=== PATIENT | female | born 1955 | race Caucasian/White ===

== ENCOUNTER 2025-02-22 18:12 | Inpatient (IN) | payer OTHER ==
[~2025-02-22] VITALS: Ht 157.5 cm; Wt 84.5 kg
[~2025-02-22 18:12] MED LIST: AMIO200T33 PO; AMLO1TAB22 PO; ASPI325T25 PO; CLOP75TA28 PO; FENO5TAB PO; FURO1TAB31 PO; HYDR-2035 PO; LEVO50TA7 PO; METO25TA36 PO; NITR0.4D5 TD; ZOLP5TAB5 PO
--- NOTE | 2025-02-22 19:05 | ED.PDOC ---
GI ASSESSMENT HPI Comments HPI: Poor Historian. 70-year-old female presents to emergency department for evaluation of two day history of epigastric pain nonradiating constant with the associated nausea but no vomiting or diarrhea or fever. Once the patient arrived to the ED she was found to be slightly hypoxic 92% on room air. She was given supplemental oxygen. She said as soon as she started using the oxygen her epigastric symptoms have completely resolved. She also states she started taking Voltaren yesterday for arthritis which may contribute to her abdominal pain. Denies bleeding from anywhere. Past Medical History: Arthritis, hypertension, thyroid disease, sudden cardiac Past Surgical History: REVIEW OF SYSTEMS: CONSTITUTIONAL: Denies acute: fever, diaphoresis, chills, HEAD: Denies acute: headache, photophobia Eyes: Denies acute: Double vision, vision loss, eye pain, eye discharge. EARS: Denies acute: tinnitus, hearing loss, ear discharge, ear pain, THROAT: Denies acute: sore throat, swelling, difficulty swallowing , pain with swallowing, change in voice. NECK: Denies acute: neck pain, neck swelling, stiff neck. HEART: Denies acute : chest pain, palpitations, LUNGS: Denies acute: SOB, wheezing, cough, hemoptysis ABDOMEN: Denies acute: Vomiting, diarrhea, melena , hematemesis, hematochezia SKIN: Denies acute: rash, redness, lesions, itchiness. EXTREMITIES: Denies acute: calf pain, numbness, tingling, weakness, denies pain in extremity. Denies acute: Low back pain. Neuro: Denies acute: focal neurological deficit, motor or sensory focal neurological deficit, tremors, seizure like activity, confusion, dizziness, change in mental status, loss of bowel or bladder function, cauda equina like symptoms. : Denies acute: dysuria, hematuria, flank pain, increase in urinary frequency. PSYCH: Denies acute: hallucination, suicidal ideation, homicidal ideation. FEMALE: Denies acute: abnormal vaginal bleeding, foul odor, unusual discharge. PHYSICAL EXAM: General: -----mild---acute distress, awake and alert. Head: normocephalic, atraumatic. Neck: supple, trachea is midline, no swelling. Throat: Normal phonation. Eyes:, no erythema, no purulent discharge, no proptosis, no icterus. Heart: regular rate, regular rhythm, no significant murmur appreciated. Lungs: no apparent respiratory distress, Able to speak in full sentences. No wheezing, no rhonchi, no crackles. No stridors Clear to auscultation bilaterally. Abdomen: non tender to palpation, non distended, soft, no guarding, no rebound, + bowel sounds. Neuro: Awake, Alert, oriented to name, self, situation, follows commands GCS=15. Speech is normal. Skin: no petechia, no purpura, no cyanosis, non-pale, not jaundice. Lower extremities: --no - Pitting edema no deformity, no focal swelling, no calf TTP. Makes eye contact. moves all four extremities. Face: no apparent facial droop. Ambulating in the ED independently. ED COURSE: DISCLAIMER: This medical document was created using an electronic medical record system with voice recognition software and computerized dictation system. Although this document has been carefully reviewed, there might still be some phonetic and typographical errors. Occasional wrong-word or "sound-alike" substitutions may have occurred due to the inherent limitations of voice recognition software. These areas are purely typographical due to imperfections of the software programs and do not reflect any compromise in the patient's medical care. Please read the chart carefully and recognize, using context, where these substitutions have occurred. Chief Complaint: Abdominal Pain Time Seen by MD: 18:18 Primary Care Provider: BRITTANI Reviewed Notes: Nurses Notes, Allergies Allergies: Coded Allergies: Statins (Verified Allergy, Unknown, 11/05/14) Home Meds Reported Medications Aspirin (Aspirin Ec) 325 Mg Tab, 325 MG PO, TAB 3//15 Metoprolol Succinate (Toprol Xl) 25 Mg Tab, 1 TAB PO DAILY, #30 TAB 5 Refills 11/05/14 Zolpidem Tartrate (Zolpidem Tartrate) 5 Mg Tab, 1 TAB PO QPM, #30 TAB 2 Refills 11/05/14 Hydrocodone-Acetaminophen (Hydrocodone Bitartrate/Ap) 1 Tab Tab, 1 TAB PO, TAB 11/05/14 Nitroglycerin (Nitroglycerin Transdermal) 0.4 Mg/Hr Dis, 0.4 MG TD, DIS 11/05/14 Fenofibrate (Tricor) 145 Mg Tab, 145 MG PO, TAB 11/05/14 Clopidogrel Bisulfate (Plavix) 75 Mg Tab, 1 TAB PO DAILY, #90 TAB 1 Refill 11/05/14 Levothyroxine Sodium (Levothyroxine Sodium) 50 Mcg Tab, 50 MCG PO, TAB 11/05/14 Furosemide (Lasix) 40 Mg Tab, 40 MG PO, TAB 11/05/14 Amlodipine Besylate (Amlodipine Besylate) 5 Mg Tab, 1 TAB PO DAILY, #30 TAB 5 Refills 11/05/14 Amiodarone Hcl (Amiodarone Hcl) 200 Mg Tab, 200 MG PO, TAB 11/05/14 Information Source: Patient Mode of Arrival: Ambulatory Past Medical History PAST MEDICAL HISTORY: HTN Surgical History: Denies all surgeries SMOG TECHNICIAN History: No Pertinent SMOG TECHNICIAN History Family History Family History: Unobtainable Social History Smoker: Cigarettes Alcohol: Denies ETOH Use Drugs: Denies Drug Use Lives In: Home Was a procedure done? Was a procedure done?: No GI differential Dx Differential Diagnosis: Other (DDX include Diverticulitis, colitis, gastroenteritis, acute abdomen, SBO, enteritis, constipation, volvulus, appendicitis, Gallbladder disease, choledocolithiasis, ascending cholangitis, pancreatitis, intraAbdominal mass/neoplasm, hepatitis, UTI, pylonephritis, kidney stone, aneurysm, dissection, Inflammatory bowel disease, gastroparesis, ischemic bowel, ) X-Ray, Labs, Meds, VS Vital Signs Date Time Temp Pulse Resp B/P (MAP) Pulse Ox O2 Delivery O2 Flow Rate FiO2 02/22/25 18:44 74 02/22/25 18:38 98.1 78 20 155/74 (101) 92 98.1 Lab Test 02/22/25 20:20 02/22/25 20:10 02/22/25 19:56 02/22/25 19:04 Range/Units Blood Gas Specimen Type Arterial Blood Gas Sample Site Right radial Blood Gas Patient Temperature 37.0 Arterial Blood Date Drawn [id number] Arterial Blood pH 7.446 7.350-7.450 Arterial Blood Partial Pressure CO2 29.6 L 32.0-45.0 mmHg Arterial Blood Partial Pressure O2 74.9 L 83.0-108.0 mmHg Arterial Blood HCO3 19.9 L 21.0-28.0 mmol/L Arterial Blood Oxygen Saturation 95.3 94.0-98.0 % Arterial Blood Base Excess -2.7 L -2.0-3.0 mmol/L Arterial Blood Oxyhemoglobin 93.9 L 94.0-98.0 % Arterial Blood Carboxyhemoglobin 1.3 0.5-1.5 % Arterial Blood Methemoglobin 0.2 0.0-1.5 % Foreign Test Yes Blood Gas Total Hemoglobin 15.60 12.0-16.0 g/dL Blood Gas Modality Room air FiO2 % 21.0 Blood Gas Comments Urine Color Colorless Yellow Urine Clarity Clear Clear Urine pH 6.0 5.0-9.0 Urine Specific [place] 1.005 1.001-1.035 Urine Protein Negative Negative Urine Ketones Negative Negative Urine Blood Negative Negative /uL Urine Nitrite Negative Negative Urine Bilirubin Negative Negative Urine Urobilinogen Normal Negative mg/dL Urine Leukocyte Esterase Negative Negative /uL Urine RBC 1 0 - 4 /hpf Urine Microscopic WBC 2 0-5 /HPF Urine Squamous Epithelial Cells Few <5 /hpf Urine Bacteria Many H None Seen /hpf Urine Glucose Normal Normal mg/dL Troponin I High Sensitivity < 3 L 3 L </=34 ng/L White Blood Count 7.9 4.4-10.8 10^3/uL Red Blood Count 5.21 H 4.0-5.20 10^6/uL Hemoglobin 15.7 12.2-16.2 g/dL Hematocrit 46.0 36.0-46.0 % Mean Corpuscular Volume 88.3 80.0-100.0 fL Mean Corpuscular Hemoglobin 30.1 28.0-32.0 pg Mean Corpuscular Hemoglobin Concent 34.1 32.0-36.0 g/dL Red Cell Distribution Width 13.6 11.8-14.3 % Platelet Count 242 140-450 10^3/uL Mean Platelet Volume 8.6 6.9-10.8 fL Neutrophils (%) (Auto) 70.5 37.0-80.0 % Lymphocytes (%) (Auto) 21.1 10.0-50.0 % Monocytes (%) (Auto) 6.7 0.0-12.0 % Eosinophils (%) (Auto) 0.9 0.0-7.0 % Basophils (%) (Auto) 0.8 0.0-2.0 % Neutrophils # (Auto) 5.5 1.6-8.6 10 ^3/uL Lymphocytes # (Auto) 1.7 0.4-5.4 10 ^3/uL Monocytes # (Auto) 0.5 0-1.3 10 ^3/uL Eosinophils # (Auto) 0.1 0-0.8 10 ^3/uL Basophils # (Auto) 0.1 0-0.2 10 ^3/uL Nucleated Red Blood Cells 0.1 % Sodium Level 135 L 136-145 mmol/L Potassium Level 4.1 3.5-5.1 mmol/L Chloride Level 100 98-107 mmol/L Carbon Dioxide Level 24 20-31 mmol/L Anion Gap 11 5-15 Blood Urea Nitrogen 13 9-23 mg/dL Creatinine 0.85 0.550-1.02 mg/dL Glomerular Filtration Rate Calc 74 >90 mL/min BUN/Creatinine Ratio 15.3 10.0-20.0 Serum Glucose 126 H 74-106 mg/dL Lactic Acid Level 1.2 0.4-2.0 mmol/L Calcium Level 10.2 8.7-10.4 mg/dL Total Bilirubin 0.4 0.2-1.0 mg/dL Aspartate Amino Transferase (AST) 49 H <34 U/L Alanine Aminotransferase (ALT) 59 H 7-40 U/L Alkaline Phosphatase 28 L 46-116 U/L B-Type Natriuretic Peptide 15.15 0-100 pg/mL Total Protein 7.8 5.7-8.2 g/dL Albumin 4.9 H 3.2-4.8 g/dL Lipase 61 H 12-53 U/L [place] [address] Ph: [phone] DIAGNOSTIC IMAGING Diagnostic Imaging Report : [id number] Signed PATIENT: ELIJAH GONZALEZ ACCT: [id number] UNIT: [id number] : 1955 LOC: ER ROOM / BED: / AGE / SEX: 70 / F ADM STATUS: REG ER SERVICE [id number] ORDERING PHYSICIAN: PAPI CRUM DO PROCEDURE(s): ABPL - CT AB PEL WO CON-NO ORAL OR IV REASON: abd pain ORDER NUMBER(s): [id number], ACCESSION NUMBER(s): [id number] Exam: CT CT AB PEL WO CON-NO ORAL OR IV History: abd pain Comparison Study: None TECHNIQUE: Multidetector CT of the abdomen was performed from lung bases to pubic symphysis. Imaging was performed without IV contrast. Axial, coronal and sagittal multiplanar reformats were obtained from the axial data set by the technologist. Radiation Dose Information: CT Dose: CTDI volume is 19.19 mGy. Dose-length product is 961.97 mGy*cm FINDINGS: Evaluation of solid organs is limited due to lack of intravenous contrast use. Findings: Lung Bases: No acute or significant lung base finding. Normal heart size. No pleural or pericardial effusion. Liver: The liver is normal in size. No focal lesions. Gallbladder and Biliary Tree: Unremarkable Spleen: Unremarkable Pancreas: The pancreas is grossly normal in appearance. Adrenal Glands: Unremarkable Kidneys: Kidneys are grossly normal without calculi or hydronephrosis. Bladder: Grossly unremarkable for degree of distention. Bowel: The stomach is grossly normal in appearance. Small bowel and colon are normal in caliber and distribution. The appendix is not visualized; however, no secondary findings of acute appendicitis identified. Ascites: Absent Lymphadenopathy: No mesenteric, retroperitoneal or periportal lymphadenopathy. Abdominal Wall and Mesentery: Unremarkable. Vasculature: The visualized abdominal aorta is normal in size and caliber. Evaluation of abdominal and pelvic vessels is limited due to lack of intravenous contrast. Pelvic Organs: Unremarkable Musculoskeletal: No aggressive focal bony lesions, acute fractures or dislocation. Soft tissues: Unremarkable IMPRESSION: 1. No CT findings of bowel obstruction 2. No calcified gallstones 3. No nephrolithiasis or hydronephrosis Radiation optimization: All CT scans at this facility use at least one of these dose optimization techniques: automated exposure control mA and/or kV adjustment per patient size (includes targeted exams where dose is matched to clinical indication) or iterative reconstruction. HS:Y ATED BY: AURA KITCHEN Jr., DO DICTATED DATE/TIME: 02/22/251953 SIGNED BY: AURA KITCHEN Jr., SIGNED DATE/TIME: 02/22/251953 CC: [place] [address] Ph: [phone] DIAGNOSTIC IMAGING Diagnostic Imaging Report : [id number] Signed PATIENT: ELIJAH GONZALEZ ACCT: [id number] UNIT: [id number] : 1955 LOC: ER ROOM / BED: / AGE / SEX: 70 / F ADM STATUS: REG ER SERVICE [id number] ORDERING PHYSICIAN: PAPI CRUM DO PROCEDURE(s): CXRP - CHEST PORTABLE REASON: sob ORDER NUMBER(s): [id number], ACCESSION NUMBER(s): [id number] CHEST RADIOGRAPH Indication: sob Technique: Single frontal view of the chest was obtained COMPARISON: None FINDINGS: Lines and Tubes: None Lungs: Mild increased interstitial prominence Pleura: No effusion. No pneumothorax. Cardiomediastinal contours: Unremarkable Bones: Unremarkable IMPRESSION: Mild pulmonary vascular congestion or viral pneumonias ATED BY: DANIEL WHITEHEAD MD DICTATED DATE/TIME: 02/22/251944 SIGNED BY: DANIEL WHITEHEAD MD SIGNED DATE/TIME: 02/22/251944 CC: Time of 1ST Reevaluation: 18:18 Reevaluation 1ST: Unchanged Patient Education/Counseling: Diagnosis, Treatment Family Education/Counseling: No Family Present Comments Patient presented with the above HPI.--epigastric pain and hypoxemia----workup was initiated. patient was found with the above mentioned diagnosis. the following medications were ordered: please refer to order lists of meds and tests obtained by myself Dr. Crum. Patient ED course and VS have been stabilized. Patient has been reassessed in the ED and remained in a stable condition. Pertinent incidental findings were discussed with the patient and/or family. Patient/family voices understanding and is agreeable with plan. Patient has been observed in the ED adequate length of time to insure improvement/stability. Escalation of care considered: Consideration of escalation to observation or admission ABG at room air she was some mild hypoxemia. Patient was ADMITTED to the medicine team for further evaluation and treatment of their presentation. All the reports of any imaging studies that were ordered by myself were reviewed by myself. Departure 1 Departure Time of Disposition: 19:07 Impression: Primary Impression: Epigastric pain Additional Impressions: Hypoxemia Pulmonary vascular congestion Disposition: ADMITTED INPATIENT Admit to: Tele Condition: Guarded Discharged With: Self Critical Care Note Critical Care Time?: No I personally scribed for PAPI CRUM DO ([email or web address]) on 02/22/25 at 19:05. Electronically submitted by Mayito Carpio ([email or web address]). I personally scribed for PAPI CRUM DO ([email or web address]) on 02/22/25 at 21:03. Electronically submitted by Mayito Carpio ([email or web address]). PAPI CRUM DO Feb 22, 2025 19:05
[2025-02-22 19:15] LABS: Basophils # (auto) 0.1 10 ^3/uL (0-0.2); Basophils % (auto) 0.8 % (0.0-2.0); Eosinophils # (auto) 0.1 10 ^3/uL (0-0.8); Eosinophils % (auto) 0.9 % (0.0-7.0); Hemoglobin 15.7 g/dL (12.2-16.2); Lymphocytes # (auto) 1.7 10 ^3/uL (0.4-5.4); Lymphocytes % (auto) 21.1 % (10.0-50.0); Mean Corpuscular Hemoglobin 30.1 pg (28.0-32.0); Mean Corpuscular Hgb Conc. 34.1 g/dL (32.0-36.0); Mean Corpuscular Volume 88.3 fL (80.0-100.0); Monocytes # (auto) 0.5 10 ^3/uL (0-1.3); Monocytes % (auto) 6.7 % (0.0-12.0); Neutrophils # (auto) 5.5 10 ^3/uL (1.6-8.6); Neutrophils % (auto) 70.5 % (37.0-80.0); Nucleated Red Blood Cells % 0.1 %; Platelet Count (auto) 242 10^3/uL (140-450); Red Blood Cells 5.21 10^6/uL (4.0-5.20); Red Cell Distribution Width 13.6 % (11.8-14.3); White Blood Cell 7.9 10^3/uL (4.4-10.8)
[2025-02-22 19:30] VITALS: PULSE 65; RESP 13; O2SAT 94
[2025-02-22 19:32] LABS: Anion Gap 11 (5-15); BUN/Creatinine Ratio 15.3 (10.0-20.0); Blood Urea Nitrogen 13 mg/dL (9-23); Calcium 10.2 mg/dL (8.7-10.4); Carbon Dioxide 24 mmol/L (20-31); Chloride 100 mmol/L (98-107); Potassium 4.1 mmol/L (3.5-5.1); Total Protein 7.8 g/dL (5.7-8.2)
[2025-02-22 19:33] LABS: Bilirubin, Total 0.4 mg/dL (0.2-1.0)
[2025-02-22 19:44] LABS: Alanine Aminotransferase 59 U/L (7-40); Albumin 4.9 g/dL (3.2-4.8); Alkaline Phosphatase 28 U/L (46-116); Aspartate Aminotransferase 49 U/L (<34); Glucose 126 mg/dL (74-106); Lipase 61 U/L (12-53); Sodium 135 mmol/L (136-145)
--- NOTE | 2025-02-22 19:48 | DVH ---
CHEST RADIOGRAPH Indication: sob Technique: Single frontal view of the chest was obtained COMPARISON: None FINDINGS: Lines and Tubes: None Lungs: Mild increased interstitial prominence Pleura: No effusion. No pneumothorax. Cardiomediastinal contours: Unremarkable Bones: Unremarkable IMPRESSION: Mild pulmonary vascular congestion or viral pneumonias
--- NOTE | 2025-02-22 19:57 | DVH ---
Exam: CT CT AB PEL WO CON-NO ORAL OR IV History: abd pain Comparison Study: None TECHNIQUE: Multidetector CT of the abdomen was performed from lung bases to pubic symphysis. Imaging was performed without IV contrast. Axial, coronal and sagittal multiplanar reformats were obtained fr om the axial data set by the technologist. Radiation Dose Information: CT Dose: CTDI volume is 19.19 mGy. Dose-length product is 961.97 mGy*cm FINDINGS: Evaluation of solid organs is limited due to lack of intravenous contrast use. Findings: Lung Bases: No acute or significant lung base finding. Normal heart size. No pleural or pericardial effusion. Liver: The liver is normal in size. No focal lesions. Gallbladder and Biliary Tree: Unremarkable Spleen: Unremarkable Pancreas: The pancreas is grossly normal in appearance. Adrenal Glands: Unremarkable Kidneys: Kidneys are grossly normal without calculi or hydronephrosis. Bladder: Grossly unremarkable for degree of distention. Bowel: The stomach is grossly normal in appearance. Small bowel and colon are normal in caliber and d istribution. The appendix is not visualized; however, no secondary findings of acute appendicitis id entified. Ascites: Absent Lymphadenopathy: No mesenteric, retroperitoneal or periportal lymphadenopathy. Abdominal Wall and Mesentery: Unremarkable. Vasculature: The visualized abdominal aorta is normal in size and caliber. Evaluation of abdominal a nd pelvic vessels is limited due to lack of intravenous contrast. Pelvic Organs: Unremarkable Musculoskeletal: No aggressive focal bony lesions, acute fractures or dislocation. Soft tissues: Unremarkable IMPRESSION: 1. No CT findings of bowel obstruction 2. No calcified gallstones 3. No nephrolithiasis or hydronephrosis Radiation optimization: All CT scans at this facility use at least one of these dose optimization te chniques: automated exposure control mA and/or kV adjustment per patient size (includes targeted exa ms where dose is matched to clinical indication) or iterative reconstruction. HS:Y
[2025-02-22 20:26] LABS: Urine Bacteria MANY /hpf (None Seen); Urine Blood Negative /uL (Negative); Urine Clarity Clear (Clear); Urine Color Colorless (Yellow); Urine Protein, UAD Negative (Negative); Urine Specific Gravity 1.005 (1.001-1.035); Urine Squamous Epithelial Cell FEW /hpf (<5); Urine Urobilinogen Normal (Negative); Urine WBC 2 /HPF (0-5)
[2025-02-22 20:40] LABS: Base Excess -2.7 mmol/L (-2.0-3.0)
[2025-02-22] MEDS: cefTRIAXone 1GM/50ML D5W 50 ML IV ONE (21:22)
[2025-02-22] MEDS: FUROSEMIDE 40 MG/4 ML VIAL IV ONE (21:22)
[2025-02-22] MEDS ORDERED: DOCUSATE SOD 100 MG CAP PO PRN (21:30)
[2025-02-22] MEDS ORDERED: MORPHINE SULFATE INJ 2 MG/ml SYRG IV PRN ×2 (21:30→22:45)
[2025-02-22] MEDS ORDERED: hydrALAZINE HCL 20 MG/ML VL IV PRN (21:30)
[2025-02-22] MEDS ORDERED: ONDANSETRON HCL 4 MG/2 ML VIAL IV PRN (21:30)
[2025-02-22] MEDS ORDERED: IBUPROFEN 600 MG TAB PO PRN (21:30)
[2025-02-22] MEDS: SUCRALFATE 1 GM TAB PO ONE (21:46)
[2025-02-22] MEDS: LIDOCAINE VISCOUS 2% 15ML UD PO ONE (21:46)
[2025-02-22] MEDS: PANTOPRAZOLE 40 MG TAB PO ONE (21:46)
[2025-02-22] MEDS: SODIUM CHLORIDE 0.9% 1,000 ML IV SCH (22:08)
--- NOTE | 2025-02-22 22:38 | DVHHP2 ---
History of Present Illness Reason for Visit: Pneumonia, unspecified organism History of Present Illness The patient is a 70-year-old female with past medical history of hypertension, thyroid disease arthritis, and sudden cardiac who presented to [facility] ED with complaint of acute abdominal pain. Patient reports symptoms progressively get worse with nonradiating constant epigastric pain, associated nausea, shortness of breaths, getting worse that prompted this visit. She also states she started taking Voltaren yesterday for arthritis which may contribute to her abdominal pain. Patient was seen and evaluated in the ED, laboratory data shows WBC 7.7, platelets 242, sodium 135, potassium 4.1, BUN 13, creatinine 0.85, glucose 126, BNP 15.15, lipase 61, AST 49, ALT 59, troponin three, blood pressure 155/74, heart rate 74, temperature 98.1 F, O2 saturation 82% on oxygen. Chest x-ray revealing mild pulmonary vascular congestion or viral pneumonia. Please see medication orders section in the computer. On my assessment, patient denied chest pain, no headache, no dizziness, currently on oxygen, no diarrhea, no nausea, no vomiting, no fever, no chills. Patient was admitted for further evaluation and medical management. Past Medical History Arthritis, hypertension, thyroid disease, sudden cardiac Past Surgical History Denies all surgeries Family History Reviewed, noncontributory to the management of this case. Past Social History The patient lives at home, denies smoking, alcohol or illicit drugs abuse. Review of Systems Constitutional: Yes: Weakness; No: Fever, Chills, Sweats, Malaise, Other Eyes: No: Pain, Vision change, Conjunctivae inflammation, Eyelid inflammation, Other, Redness ENT: No: Ear pain, Ear discharge, Nose pain, Nose discharge, Nose congestion, Mouth pain, Mouth swelling, Throat pain, Throat swelling, Other Respiratory: Shortness of breath; No: Cough, Dry, SOB with excertion, Wheezing, Hemoptysis, Pleuritic Pain, Sputum, Wheezing, Other Cardiovascular: No: Chest Pain, Palpitations, Orthopnea, Paroxysmal Noc. Dyspnea, Edema, Lt Headedness, Other Gastrointestinal: Nausea, Abdominal Pain; No: Vomiting, Diarrhea, Constipation, Melena, Hematochezia, Other Genitourinary: No Dysuria, No Frequency, No Incontinence, No Hematuria, No Retention, No Other Musculoskeletal: No: other, neck pain, shoulder pain, arm pain, back pain, hand pain, leg pain, foot pain Skin: No: Rash, Lesions, Jaundice, Bruising, Other Neurological: No: Weakness, Numbness, Incoordination, Change in speech, Confusion, Seizures, Other Allergies: Coded Allergies: Statins (Verified Allergy, Unknown, 11/05/14) Medications Current Medications Medications Dose Ordered Sig/Doreen Route Start Time Stop Time Status Last Admin Dose Admin Azithromycin 250 ml @ 125 mls/hr DAILY IV 02/23/25 10:00 Aspirin 81 mg DAILY PO 02/23/25 10:00 Levothyroxine Sodium 50 mcg QAM@0600 PO 02/23/25 06:00 Ibuprofen 600 mg Q6HP PRN PO 02/22/25 21:30 Amlodipine Besylate 5 mg DAILY PO 02/23/25 10:00 Metoprolol Tartrate 25 mg BID PO 02/22/25 22:00 Hydralazine HCl 10 mg Q6HP PRN IV 02/22/25 21:30 Pantoprazole Sodium 40 mg DAILY IV 02/23/25 10:00 Sodium Chloride 1,000 ml @ 60 mls/hr [id number] IV 02/22/25 21:30 02/22/25 22:08 60 MLS/HR Acetaminophen/ Hydrocodone Bitart 1 tab Q4HP PRN PO 02/22/25 21:30 Ondansetron HCl 4 mg Q4HP PRN IV 02/22/25 21:30 Docusate Sodium 100 mg BIDPRN PRN PO 02/22/25 21:30 Morphine Sulfate 2 mg Q4HPRN PRN IV 02/22/25 21:30 Exam Vital Signs Vital Signs Date Time Temp Pulse Resp B/P (MAP) Pulse Ox O2 Delivery O2 Flow Rate FiO2 02/22/25 21:22 132/69 02/22/25 18:44 74 02/22/25 18:38 98.1 20 92 98.1 General Appearance: Alert, Oriented X3, Cooperative, No acute distress HEENT: Atraumatic, PERRLA, EOMI, Mucous membr. moist/pink Respiratory: Normal air movement Cardiovascular: Regular rate, Normal S1, Normal S2, No murmurs Abdominal: Normal bowel sounds, Soft, No tenderness, No hepatospenomegaly, No masses Extremities: No clubbing, No cyanosis, No edema, Normal pulses, No tenderness/swelling Skin: No rashes, No breakdown, No significant lesion Neuro: Normal speech, Normal tone, Sensation intact, Cranial nerves 3-12 NL, Reflexes 2+ Psych/Mental Status: Mental status NL, Mood NL Labs/Xrays Labs Test 02/22/25 22:07 02/22/25 20:20 02/22/25 20:10 02/22/25 19:56 Range/Units Blood Gas Specimen Type Arterial Blood Gas Sample Site Right radial Blood Gas Patient Temperature 37.0 Arterial Blood Date Drawn Arterial Blood pH 7.446 7.350-7.450 Arterial Blood Partial Pressure CO2 29.6 L 32.0-45.0 mmHg Arterial Blood Partial Pressure O2 74.9 L 83.0-108.0 mmHg Arterial Blood HCO3 19.9 L 21.0-28.0 mmol/L Arterial Blood Oxygen Saturation 95.3 94.0-98.0 % Arterial Blood Base Excess -2.7 L -2.0-3.0 mmol/L Arterial Blood Oxyhemoglobin 93.9 L 94.0-98.0 % Arterial Blood Carboxyhemoglobin 1.3 0.5-1.5 % Arterial Blood Methemoglobin 0.2 0.0-1.5 % Foreign Test Yes Blood Gas Total Hemoglobin 15.60 12.0-16.0 g/dL Blood Gas Modality Room air FiO2 % 21.0 Blood Gas Comments Urine Color Colorless Yellow Urine Clarity Clear Clear Urine pH 6.0 5.0-9.0 Urine Specific [place] 1.005 1.001-1.035 Urine Protein Negative Negative Urine Ketones Negative Negative Urine Blood Negative Negative /uL Urine Nitrite Negative Negative Urine Bilirubin Negative Negative Urine Urobilinogen Normal Negative mg/dL Urine Leukocyte Esterase Negative Negative /uL Urine RBC 1 0 - 4 /hpf Urine Microscopic WBC 2 0-5 /HPF Urine Squamous Epithelial Cells Few <5 /hpf Urine Bacteria Many H None Seen /hpf Urine Glucose Normal Normal mg/dL Thyroid Stimulating Hormone (TSH) 2.34 0.55-4.78 uIU/mL Test 02/22/25 19:04 Range/Units White Blood Count 7.9 4.4-10.8 10^3/uL Red Blood Count 5.21 H 4.0-5.20 10^6/uL Hemoglobin 15.7 12.2-16.2 g/dL Hematocrit 46.0 36.0-46.0 % Mean Corpuscular Volume 88.3 80.0-100.0 fL Mean Corpuscular Hemoglobin 30.1 28.0-32.0 pg Mean Corpuscular Hemoglobin Concent 34.1 32.0-36.0 g/dL Red Cell Distribution Width 13.6 11.8-14.3 % Platelet Count 242 140-450 10^3/uL Mean Platelet Volume 8.6 6.9-10.8 fL Neutrophils (%) (Auto) 70.5 37.0-80.0 % Lymphocytes (%) (Auto) 21.1 10.0-50.0 % Monocytes (%) (Auto) 6.7 0.0-12.0 % Eosinophils (%) (Auto) 0.9 0.0-7.0 % Basophils (%) (Auto) 0.8 0.0-2.0 % Neutrophils # (Auto) 5.5 1.6-8.6 10 ^3/uL Lymphocytes # (Auto) 1.7 0.4-5.4 10 ^3/uL Monocytes # (Auto) 0.5 0-1.3 10 ^3/uL Eosinophils # (Auto) 0.1 0-0.8 10 ^3/uL Basophils # (Auto) 0.1 0-0.2 10 ^3/uL Nucleated Red Blood Cells 0.1 % Sodium Level 135 L 136-145 mmol/L Potassium Level 4.1 3.5-5.1 mmol/L Chloride Level 100 98-107 mmol/L Carbon Dioxide Level 24 20-31 mmol/L Anion Gap 11 5-15 Blood Urea Nitrogen 13 9-23 mg/dL Creatinine 0.85 0.550-1.02 mg/dL Glomerular Filtration Rate Calc 74 >90 mL/min BUN/Creatinine Ratio 15.3 10.0-20.0 Serum Glucose 126 H 74-106 mg/dL Lactic Acid Level 1.2 0.4-2.0 mmol/L Calcium Level 10.2 8.7-10.4 mg/dL Total Bilirubin 0.4 0.2-1.0 mg/dL Aspartate Amino Transferase (AST) 49 H <34 U/L Alanine Aminotransferase (ALT) 59 H 7-40 U/L Alkaline Phosphatase 28 L 46-116 U/L B-Type Natriuretic Peptide 15.15 0-100 pg/mL Total Protein 7.8 5.7-8.2 g/dL Albumin 4.9 H 3.2-4.8 g/dL Lipase 61 H 12-53 U/L PATIENT: ELIJAH GONZALEZ ACCT: [id number] UNIT: [id number] : 1955 LOC: ER ROOM / BED: / AGE / SEX: 70 / F ADM STATUS: REG ER SERVICE 17 ORDERING PHYSICIAN: PAPI CRUM DO PROCEDURE(s): ABPL - CT AB PEL WO CON-NO ORAL OR IV REASON: abd pain ORDER NUMBER(s): [id number], ACCESSION NUMBER(s): [id number] Exam: CT CT AB PEL WO CON-NO ORAL OR IV History: abd pain Comparison Study: None TECHNIQUE: Multidetector CT of the abdomen was performed from lung bases to pubic symphysis. Imaging was performed without IV contrast. Axial, coronal and sagittal multiplanar reformats were obtained from the axial data set by the technologist. Radiation Dose Information: CT Dose: CTDI volume is 19.19 mGy. Dose-length product is 961.97 mGy*cm FINDINGS: Evaluation of solid organs is limited due to lack of intravenous contrast use. Findings: Lung Bases: No acute or significant lung base finding. Normal heart size. No pleural or pericardial effusion. Liver: The liver is normal in size. No focal lesions. Gallbladder and Biliary Tree: Unremarkable Spleen: Unremarkable Pancreas: The pancreas is grossly normal in appearance. Adrenal Glands: Unremarkable Kidneys: Kidneys are grossly normal without calculi or hydronephrosis. Bladder: Grossly unremarkable for degree of distention. Bowel: The stomach is grossly normal in appearance. Small bowel and colon are normal in caliber and distribution. The appendix is not visualized; however, no secondary findings of acute appendicitis identified. Ascites: Absent Lymphadenopathy: No mesenteric, retroperitoneal or periportal lymphadenopathy. Abdominal Wall and Mesentery: Unremarkable. Vasculature: The visualized abdominal aorta is normal in size and caliber. Evaluation of abdominal and pelvic vessels is limited due to lack of intravenous contrast. Pelvic Organs: Unremarkable Musculoskeletal: No aggressive focal bony lesions, acute fractures or dislocation. Soft tissues: Unremarkable IMPRESSION: 1. No CT findings of bowel obstruction 2. No calcified gallstones 3. No nephrolithiasis or hydronephrosis ORDERING PHYSICIAN: PAPI CRUM DO PROCEDURE(s): CXRP - CHEST PORTABLE REASON: sob ORDER NUMBER(s): [id number], ACCESSION NUMBER(s): [id number] CHEST RADIOGRAPH Indication: sob Technique: Single frontal view of the chest was obtained COMPARISON: None FINDINGS: Lines and Tubes: None Lungs: Mild increased interstitial prominence Pleura: No effusion. No pneumothorax. Cardiomediastinal contours: Unremarkable Bones: Unremarkable IMPRESSION: Mild pulmonary vascular congestion or viral pneumonias Assessment/Plan Assessment/Plan Epigastric pain Elevated liver enzymes Hypoxemia Acute respiratory distress Pneumonia, unspecified organisms Pulmonary vascular congestion Plan 1. Admit to telemetry unit 2. Breathing treatment 3. Pain control management 4. IV antibiotic management 5. Management of fluids and electrolytes 6. Consultation for hospitalist 7. Diagnostic test chest x-ray 8. DVT prophylaxis-on aspirin 9. Repeat labs CBC, CMP in a.m. 10. Home medication reviewed and reconciled 11. Continue with current medical management 12. Treatment plan discussed with patient and RN. Patient verbalized understanding. Plan discussed with: Patient, Other (RN) My Orders Orders - KHALIDA BISWAS DNP Procedure Category Date Status Time Azithromycin 500mg/ PHA 02/23/25 In Process 250ml (Zithromax 50 10:00 Azithromycin 500mg/ PHA 02/22/25 In Process 250ml (Zithromax 50 21:30 Aspirin Tablet PHA 02/23/25 In Process 10:00 Levothyroxine Tablet PHA 02/23/25 In Process (Synthroid Tablet) 06:00 Ibuprofen Tablet PHA 02/22/25 In Process (Motrin Tablet) 21:30 Amlodipine Tablet PHA 02/23/25 In Process (Norvasc Tablet) 10:00 Metoprolol Tartrate PHA 02/22/25 In Process Tablet (Lopressor Ta 22:00 Hydralazine Injection PHA 02/22/25 In Process (Apresoline Inject 21:30 Pantoprazole PHA 02/23/25 In Process (Protonix) 10:00 Allergies ANIL 02/22/25 In Process 21:22 Code Status CODE 02/22/25 Transmitted 21:22 Sodium Chloride 0.9% PHA 02/22/25 In Process 21:30 Oxygen Per Hour RT 02/22/25 Transmitted 21:22 Hydrocodone-Acet PHA 02/22/25 In Process 5/325mg Tab ([place] 21:30 Ondansetron Hcl PHA 02/22/25 In Process (Zofran) 21:30 Docusate Sodium PHA 02/22/25 In Process Capsule (Colace 21:30 Complete Blood Count LAB 02/23/25 Verified 04:00 Comprehensive LAB 02/23/25 Verified Metabolic Panel 04:00 Condition: Serious ANIL 02/22/25 In Process 21:22 Clear Liq Diet DIET 02/23/25 Transmitted Breakfast Bedrest With Bathroom ANIL 02/22/25 In Process Privileg 21:22 Morphine Sulfate PHA 02/22/25 In Process Injection 21:30 Sequential ANIL 02/22/25 In Process Compression Device Admit ADMIT 02/22/25 Verified 22:36 Nitroglycerin [facility] 02/22/25 Verified Sublingual (Ntrostat 22:45 Morphine Sulfate PHA 02/22/25 Verified Injection 22:45 Stat Ekg For Chest [facility] 02/22/25 Verified Pain 22:36 Notify Md Of Changes [facility] 02/22/25 Verified From Base 22:36 Flag Signalman For [facility] 02/22/25 Verified 24 Hours 22:36 Emergency Dysrhythmia [facility] 02/22/25 Verified Protocol 22:36 Rhythm Strips Once [facility] 02/22/25 Verified Every Shift 22:36 Oxygen By Nasal RT 02/22/25 Verified Cannula 22:36 Problem List: (1) Epigastric pain (2) Elevated liver enzymes (3) Hypoxemia (4) Acute respiratory distress (5) Pneumonia, unspecified organism (6) Pulmonary vascular congestion Date of Service: Feb 22, 2025 Billing Provider: KHALIDA BISWAS DNP Common Visit Codes: [id number] INP/OBS CARE (HIGH) KHALIDA BISWAS DNP Feb 22, 2025 22:38
[2025-02-22] MEDS ORDERED: NITROGLYCERIN 0.4 MG SL TAB SL PRN (22:45)
[2025-02-22] MEDS: AZITHROMYCIN 500MG/ 250ML 250 ML IV ONE (22:59)
[2025-02-22] MEDS: METOPROLOL TARTRATE 25 MG TAB PO SCH (22:59)
[2025-02-23 04:20] LABS: Basophils # (auto) 0.1 10 ^3/uL (0-0.2); Eosinophils # (auto) 0.1 10 ^3/uL (0-0.8); Eosinophils % (auto) 0.7 % (0.0-7.0); Hematocrit 46.2 % (36.0-46.0); Hemoglobin 15.6 g/dL (12.2-16.2); Lymphocytes # (auto) 2.3 10 ^3/uL (0.4-5.4); Lymphocytes % (auto) 31.8 % (10.0-50.0); Mean Corpuscular Hgb Conc. 33.8 g/dL (32.0-36.0); Mean Corpuscular Volume 88.7 fL (80.0-100.0); Monocytes # (auto) 0.8 10 ^3/uL (0-1.3); Monocytes % (auto) 10.3 % (0.0-12.0); Neutrophils # (auto) 4.2 10 ^3/uL (1.6-8.6); Neutrophils % (auto) 56.2 % (37.0-80.0); Nucleated Red Blood Cells % 0.1 %; Platelet Count (auto) 252 10^3/uL (140-450); Red Blood Cells 5.21 10^6/uL (4.0-5.20); Red Cell Distribution Width 13.9 % (11.8-14.3); White Blood Cell 7.4 10^3/uL (4.4-10.8)
[2025-02-23 04:30] LABS: Anion Gap 11 (5-15); BUN/Creatinine Ratio 12.3 (10.0-20.0); Bilirubin, Total 0.4 mg/dL (0.2-1.0); Blood Urea Nitrogen 13 mg/dL (9-23); Carbon Dioxide 26 mmol/L (20-31); Chloride 104 mmol/L (98-107); Glucose 79 mg/dL (74-106); Sodium 141 mmol/L (136-145); Total Protein 7.9 g/dL (5.7-8.2)
[2025-02-23 05:01] LABS: Alanine Aminotransferase 46 U/L (7-40); Alkaline Phosphatase 27 U/L (46-116); Aspartate Aminotransferase 38 U/L (<34)
[2025-02-23 05:02] LABS: Albumin 4.9 g/dL (3.2-4.8); Calcium 10.6 mg/dL (8.7-10.4)
[2025-02-23] MEDS: LEVOTHYROXINE SODIUM 50 MCG TAB PO SCH (06:32)
[2025-02-23 08:31] VITALS: O2SAT 94
[2025-02-23] MEDS: HYDROcodone-ACET 5/325MG TAB PO PRN (08:49)
[2025-02-23] MEDS: PANTOPRAZOLE 40 MG/10 ML VIAL INJ IV SCH (10:32)
[2025-02-23] MEDS: AZITHROMYCIN 500MG/ 250ML 250 ML IV SCH (10:32)
[2025-02-23] MEDS: amLODIPine BESYLATE 5 MG TAB PO SCH (10:33)
[2025-02-23] MEDS: ASPirin 81 mg TAB PO SCH (10:34)
[2025-02-23] MEDS: MAALOX PLUS or MAALOX 30 ML PO ONE (14:36)
[2025-02-23] MEDS ORDERED: POLY335015 PO (14:48)
[2025-02-23] MEDS ORDERED: MAA30LQ PO (14:48)
[2025-02-23] MEDS ORDERED: SENN-105 PO (14:48)
[2025-02-23] MEDS ORDERED: PANT40TA2 PO (14:48)
--- NOTE | 2025-02-23 14:49 | DVHDS2 ---
Discharge Summary Date of Admission Feb 22, 2025 at 22:36 Date of Discharge: Feb 23, 2025 Labs/Diagnostic Data: Laboratory Results Test 02/23/25 03:55 02/22/25 22:07 02/22/25 20:20 02/22/25 20:10 White Blood Count 7.4 10^3/uL (4.4-10.8) Red Blood Count 5.21 10^6/uL (4.0-5.20) Hemoglobin 15.6 g/dL (12.2-16.2) Hematocrit 46.2 % (36.0-46.0) Mean Corpuscular Volume 88.7 fL (80.0-100.0) Mean Corpuscular Hemoglobin 30.0 pg (28.0-32.0) Mean Corpuscular Hemoglobin Concent 33.8 g/dL (32.0-36.0) Red Cell Distribution Width 13.9 % (11.8-14.3) Platelet Count 252 10^3/uL (140-450) Mean Platelet Volume 8.8 fL (6.9-10.8) Neutrophils (%) (Auto) 56.2 % (37.0-80.0) Lymphocytes (%) (Auto) 31.8 % (10.0-50.0) Monocytes (%) (Auto) 10.3 % (0.0-12.0) Eosinophils (%) (Auto) 0.7 % (0.0-7.0) Basophils (%) (Auto) 1.0 % (0.0-2.0) Neutrophils # (Auto) 4.2 10 ^3/uL (1.6-8.6) Lymphocytes # (Auto) 2.3 10 ^3/uL (0.4-5.4) Monocytes # (Auto) 0.8 10 ^3/uL (0-1.3) Eosinophils # (Auto) 0.1 10 ^3/uL (0-0.8) Basophils # (Auto) 0.1 10 ^3/uL (0-0.2) Nucleated Red Blood Cells 0.1 % Sodium Level 141 mmol/L (136-145) Potassium Level 4.0 mmol/L (3.5-5.1) Chloride Level 104 mmol/L (98-107) Carbon Dioxide Level 26 mmol/L (20-31) Anion Gap 11 (5-15) Blood Urea Nitrogen 13 mg/dL (9-23) Creatinine 1.06 mg/dL (0.550-1.02) Glomerular Filtration Rate Calc 57 mL/min (>90) BUN/Creatinine Ratio 12.3 (10.0-20.0) Serum Glucose 79 mg/dL (74-106) Calcium Level 10.6 mg/dL (8.7-10.4) Total Bilirubin 0.4 mg/dL (0.2-1.0) Aspartate Amino Transferase (AST) 38 U/L (<34) Alanine Aminotransferase (ALT) 46 U/L (7-40) Alkaline Phosphatase 27 U/L (46-116) Total Protein 7.9 g/dL (5.7-8.2) Albumin 4.9 g/dL (3.2-4.8) Troponin I High Sensitivity 3 ng/L (</=34) Blood Gas Specimen Type Arterial Blood Gas Sample Site Right radial Blood Gas Patient Temperature 37.0 Arterial Blood Date Drawn Arterial Blood pH 7.446 (7.350-7.450) Arterial Blood Partial Pressure CO2 29.6 mmHg (32.0-45.0) Arterial Blood Partial Pressure O2 74.9 mmHg (83.0-108.0) Arterial Blood HCO3 19.9 mmol/L (21.0-28.0) Arterial Blood Oxygen Saturation 95.3 % (94.0-98.0) Arterial Blood Base Excess -2.7 mmol/L (-2.0-3.0) Arterial Blood Oxyhemoglobin 93.9 % (94.0-98.0) Arterial Blood Carboxyhemoglobin 1.3 % (0.5-1.5) Arterial Blood Methemoglobin 0.2 % (0.0-1.5) Foreign Test Yes Blood Gas Total Hemoglobin 15.60 g/dL (12.0-16.0) Blood Gas Modality Room air FiO2 % 21.0 Blood Gas Comments Urine Color Colorless (Yellow) Urine Clarity Clear (Clear) Urine pH 6.0 (5.0-9.0) Urine Specific [place] 1.005 (1.001-1.035) Urine Protein Negative (Negative) Urine Ketones Negative (Negative) Urine Blood Negative /uL (Negative) Urine Nitrite Negative (Negative) Urine Bilirubin Negative (Negative) Urine Urobilinogen Normal mg/dL (Negative) Urine Leukocyte Esterase Negative /uL (Negative) Urine RBC 1 /hpf (0 - 4) Urine Microscopic WBC 2 /HPF (0-5) Urine Squamous Epithelial Cells Few /hpf (<5) Urine Bacteria Many /hpf (None Seen) Urine Glucose Normal mg/dL (Normal) Test 02/22/25 19:56 02/22/25 19:04 Thyroid Stimulating Hormone (TSH) 2.34 uIU/mL (0.55-4.78) Lactic Acid Level 1.2 mmol/L (0.4-2.0) B-Type Natriuretic Peptide 15.15 pg/mL (0-100) Lipase 61 U/L (12-53) Other Laboratory Tests 02/23/25 03:55 Brief Hx & Hospital Course: 70 F with GERD admitted for abdominal pain since 2 days w/o NVD. symptoms improved in ED. taking NSAIDS for arthritis. also reported constipation. normal CT scan , labs wnl. patient stated pain improved and wanted to go home. dc with protonix Maalox senna and MiraLAX. dc clinic. pcp apt Condition at Discharge: Good Final Diagnosis/Problems List dyspepsia GERD slow transit constipation Discharge Disposition: Home Discharge Instruct/Medications Diet: Consistent carbohydrate, Cardiac 2g Na,low cholest Diet comment: high fiber Activity: No Restrictions, As Tolerated Follow Up/Referral: dc clinic Medications: senna miralax protonix maalox Discharge Statement: "Patient was advised to return to the ER or call 911 if any headaches, dizziness, shortness of breath, chest pain, abdominal pain, bleeding, fevers, or worsening of medical condition. Patient was counseled about treatment plan, medications, possible side effects, patientverbalized understanding. All questions were answered to the best of my ability. This discharge took greater then 30 minutes in planning, reviewing documentation, counseling the patient, and discussing with other team members." ASSESSMENT ASSESSMENT Assessment dispepsia constipation Date of Service: Feb 23, 2025 Billing Provider: DOMI POTTS MD Common Visit Codes: [id number]/[id number] DISCH DAY >30min DOMI POTTS MD Feb 23, 2025 14:49
[2025-02-23 15:32] VITALS: BP 123/67; PULSE 59; RESP 18; TEMP 98.5; O2SAT 98
[2025-02-23] MEDS ORDERED: PANTOPRAZOLE 40 MG TAB PO SCH (17:00)
[2025-02-23] MEDS ORDERED: MAALOX PLUS or MAALOX 30 ML PO SCH (18:00)
--- NOTE | 2025-02-24 10:25 | ECG ---
[facility] Test Date: 2025-02-22 Test Time: 18:44:52 Pat Name: ELIJAH GONZALEZ Department: ER Room: [address] [place] [address] Gender: F Irrigation Equipment Remover: AISHA : 1955 Requested By: PAPI CRUM Order Number: [id number] Reading MD: Chris Borges Measurements Intervals [place] Rate: 74 P: 47 NV: 143 QRS: 6 QRSD: 92 T: 24 QT: 397 QTc: 441 Interpretive Statements Sinus rhythm Probable inferior infarct, old Electronically Signed On 02-25-2025 22:44:03 PDT by Chris Borges Please click the below link to view image of tracing.
== END 2025-02-23 15:53 | disposition home or self-care (01) | DRG 392 ==
LOC: ER 18:12 → OVERFLOW 22:36
PROVIDERS: ADMIT Nurse Practitioner Family; ATTEND Nurse Practitioner Family
DX: K21.9 Gastro-esophageal reflux disease without esophagitis (principal); K59.01 Slow transit constipation; I10 Essential (primary) hypertension; K30 Functional dyspepsia; R06.03 Acute respiratory distress; R09.02 Hypoxemia; F17.210 Nicotine dependence, cigarettes, uncomplicated; R74.8 Abnormal levels of other serum enzymes; Z88.8 Allergy status to other drugs, medicaments and biological substances
CPT/HCPCS: 36415; 36600; 71045; 74176; 80053; 81001; 82805; 83605; 83690; 83880; 84443; 84484; 85025; 93005; 96365; 96375; G0378; J2470